=== PATIENT | male | born 1960 | race Caucasian/White ===

== ENCOUNTER 2019-04-18 07:27 | Day surgery (SDC) | payer BC ==
[~2019-04-18] VITALS: Ht 175.3 cm; Wt 98.0 kg
[~2019-04-18 07:27] MED LIST: ASPIR-LOW81 MG PO; PRAVASTATIN SOD40 MG PO
--- NOTE | 2019-04-18 09:14 | NUR ---
04/18/19 0914 Elisabeth Tirado 0908 PATIENT SLEEPING ON ARRIVAL TO PACU. WAKES UP WITH VERBAL STIMULI, ANSWERS QUESTIONS APPROPRIATELY. DENIES PAIN, THEN BACK TO SLEEP. RESP EVEN AND UNLABORED, NC AT 3 LITERS.
--- NOTE | 2019-04-18 18:36 | OR ---
[facility] [address], [place] [address] Signed DATE OF OPERATION: 04/18/2019 SURGEON: Rajeev Zavala MD PREOPERATIVE DIAGNOSES: 1. Clinical gastroesophageal reflux with chronic cough. 2. Colon screening. POSTOPERATIVE DIAGNOSES: 1. Schatzki's ring with small hiatal hernia. 2. Antral gastritis. 3. Polyps x3 (sigmoid and rectosigmoid). PROCEDURES: 1. Total colonoscopy to cecum with cold snare polypectomy x1 and cold morcellation polypectomy x2. 2. Upper endoscopy with biopsy. ANESTHESIA: Intravenous sedation, fentanyl 150 mcg, Versed 8 mg. INDICATION: This 58-year-old white man is a patient of Humphrey Nielson DO, of [place], [place]. He has had long-standing chronic gastroesophageal reflux symptoms and now with chronic cough. He has been well managed with PPI in the past, which was withdrawn from the medicine with recurrence of his symptoms. He is currently taking no medication for reflux. He has undergone colonoscopy in 2012. He has no family history of colon cancer. He is admitted to undergo upper endoscopy to characterize his reflux problem as well as colonoscopy for surveillance. He understands the risks of bleeding, infection, and perforation, and wished to proceed. FINDINGS: Upper endoscopy showed a Schatzki's ring and chronic esophagitis and a small hiatal hernia. There was mild antral gastritis as well. Despite heavy sedation, the patient was somewhat intolerant of upper endoscopy, but it was accomplished safely. On colonoscopy, he had an adequate prep. There were three small polyps, all excised completely. There was no sign of colitis or cancer. DESCRIPTION OF PROCEDURE: Electronically Signed By: RAJEEV ZAVALA MD 04/18/19 1836 PATIENT NAME: BRET MICHEL OPERATIVE REPORT DATE OF : 60 REPORT #: [id number] PHYSICIAN: RAJEEV ZAVALA MD PCP: NO PRIMARY CARE PHYSICIAN REPORT IS CONFIDENTIAL AND NOT TO BE RELEASED WITHOUT AUTHORIZATION [facility] [address], [place] [address] Signed The patient was brought to the endoscopy suite, given topical Hurricaine spray hypopharyngeal anesthesia and placed in lateral decubitus position and given intravenous sedation to the point of slurred speech and nystagmus. A bite block was placed. An Olympus video upper endoscope was passed in the hypopharynx. The patient did not tolerate this. An additional sedation was given. Ultimately, scope was passed into the esophagus and down the esophagus, identifying the Schatzki's ring, but no evidence of Londono's epithelium. The scope was advanced to the stomach, which was insufflated with air. Rugal folds appeared normal. There was some mild antral gastritis. Duodenum was evaluated and normal. Retroflexed view undertaken showing a poor flap valve. The patient became a bit dizzy and agitated and was poorly tolerant of too much further manipulation and a biopsy was then obtained of the Schatzki's ring area in the distal esophagus and promptly removed. Additional sedation was given and digital rectal examination undertaken showing no sign of anorectal abnormality. An Olympus video colonoscope was passed in the rectum and manipulated throughout the colon without distress ultimately to the cecum. The prep was adequate. Irrigation was undertaken in the cecal area. The mucosa of the cecum behind the ileocecal valve was grasped and elevated, showing no sign of abnormalities. Scope was then withdrawn and examination throughout showed no sign of abnormality until approximately the distal sigmoid where a small sessile polyp was noted. This was excised with cold snare technique. Two additional small polyps were noted in the rectosigmoid, both were excised with cold morcellation technique. There were no other findings of concern on retroflexed view. The scope was removed and the patient was taken to recovery room in good condition. CONCLUDING DIAGNOSES: 1. Clinical and endoscopic evidence of significant gastroesophageal reflux as manifested by Schatzki's ring and chronic cough. 2. Small polyps of colon. PLAN: We will initiate PPI medication again. We will see back in 6 weeks and assess his progress, particularly regarding cough and reflux symptoms. He may be an operative candidate at some point. As regard to colon, would recommend repeat colonoscopy in 5 years sooner if clinically indicated. He will return to the ongoing care of Dr. Nielson as well. Rajeev Zavala MD Electronically Signed By: RAJEEV ZAVALA MD 04/18/19 1836 PATIENT NAME: BRET MICHEL OPERATIVE REPORT DATE OF : 60 REPORT #: [id number] PHYSICIAN: RAJEEV ZAVALA MD PCP: NO PRIMARY CARE PHYSICIAN REPORT IS CONFIDENTIAL AND NOT TO BE RELEASED WITHOUT AUTHORIZATION [facility] [address], [place] [address] Signed RYLIE/MIRACLE /[id number] cc: DO Marylou Quiros [place] Copies: ~ Electronically Signed By: RAJEEV ZAVALA MD 04/18/19 1836 PATIENT NAME: BRET MICHEL SHIRLEY OPERATIVE REPORT DATE OF : 60 REPORT #: [id number] PHYSICIAN: RAJEEV ZAVALA MD PCP: NO PRIMARY CARE PHYSICIAN REPORT IS CONFIDENTIAL AND NOT TO BE RELEASED WITHOUT AUTHORIZATION
--- NOTE | 2019-04-21 14:24 | PATH ---
[facility] [address] [place], [place] [address] Signed SPECIMEN(S): A DISTAL ESOPHAGUS SPECIMEN(S): B SIGMOID POLYP SPECIMEN(S): C SIGMOID POLYP SPECIMEN(S): D SIGMOID POLYP SPECIMEN SOURCE: A. DISTAL ESOPHAGUS B. SIGMOID POLYP C. SIGMOID POLYP D. SIGMOID POLYP CLINICAL HISTORY: Gastroesophageal reflux, esophagitis, colonoscopy screening / polyps x 3 colon, hiatal hernia; Schatzki's ring. MICROSCOPIC DESCRIPTION: Histologic sections of all submitted blocks are examined by light microscopy. These findings, together with the gross examination, support the pathologic diagnosis. FINAL PATHOLOGIC DIAGNOSIS: A. Esophagus, distal, biopsy. - Squamous mucosa with changes consistent with reflux esophagitis. - Negative for intestinal metaplasia, dysplasia, or malignancy. B. Colon, sigmoid, polyp, polypectomy: - Fragments of hyperplastic polyp. - Negative for dysplasia or malignancy. C. Colon, sigmoid, polyp, polypectomy: - Hyperplastic polyp. - Negative for dysplasia or malignancy. D. Colon, sigmoid, polyp, polypectomy: - Hyperplastic polyp. - Negative for dysplasia or malignancy. NAL:emb:C2NR GROSS DESCRIPTION: Four specimens are received in four containers, labeled "WE." A. The specimen, labeled "WE, distal esophageal biopsy," is received in formalin and consists of four, 0.2-0.3 cm tilley-white tissue fragments. The specimen is entirely submitted in cassette (A1). B. The specimen, labeled "WE, sigmoid colon polyp," is received in formalin and consists of four, 0.1-0.3 cm tilley tissue fragments admixed with debris. The PATIENT NAME: BRET MICHEL PATHOLOGY DATE OF : 60 REPORT #: [id number] PHYSICIAN: TERA WRIGHT PCP: NO PRIMARY CARE PHYSICIAN REPORT IS CONFIDENTIAL AND NOT TO BE RELEASED WITHOUT AUTHORIZATION [facility] [address] [place] [address] Signed specimen is entirely submitted in cassette (B1). C. The specimen, labeled "WE, sigmoid colon polyp," is received in formalin and consists of two, 0.1 and 0.2 cm tilley tissue fragment admixed with debris. The specimen is entirely submitted in cassette (C1). D. The specimen, labeled "WE, sigmoid colon polyp," is received in formalin and consists of a single 0.3 cm tilley-brown tissue fragment. The specimen is entirely submitted in cassette (D1). AM (under the direct supervision of a pathologist) The Gross Description was prepared using a voice recognition system. The report was reviewed for accuracy; however, sound-alike word errors, addition and/or deletions may occur. If there is any question about this report, please contact Client Services. PERFORMING LABORATORY: The technical component was performed by [email or web address] [address] (Last Greaser: Tiera Clarke MD; CLIA# [id number]). Professional interpretation was performed by [facility], [address] [place] [id number] (Last Greaser: Josue Guerrero MD; CLIA# [id number]). Diagnostician: Esther Alvarado MD Pathologist Electronically Signed 04/21/2019 Copies: ~ PATIENT NAME: MARILUBRETNIK WATSON PATHOLOGY DATE OF : 60 REPORT #: [id number] PHYSICIAN: TERA PATHOLOGY PCP: NO PRIMARY CARE PHYSICIAN REPORT IS CONFIDENTIAL AND NOT TO BE RELEASED WITHOUT AUTHORIZATION
== END 2019-04-18 09:50 | disposition home or self-care (01) ==
LOC: OPS 07:27 → DS 07:27 → OPS 08:30 → DS 08:30 → OPS 09:50
PROVIDERS: Surgery
PROC: 0DB38ZX Excision of Lower Esophagus, Via Natural or Artificial Opening Endoscopic, Diagnostic (ICD-10-PCS; principal; 2019-04-18 08:30)
PROC: 0DBN8ZZ Excision of Sigmoid Colon, Via Natural or Artificial Opening Endoscopic (ICD-10-PCS; 2019-04-18 08:30)
DX: Z12.11 Encounter for screening for malignant neoplasm of colon (principal); K63.5 Polyp of colon; K29.70 Gastritis, unspecified, without bleeding; K21.0 Gastro-esophageal reflux disease with esophagitis; R05 Cough; K22.2 Esophageal obstruction; G47.30 Sleep apnea, unspecified; K44.9 Diaphragmatic hernia without obstruction or gangrene; Z79.82 Long term (current) use of aspirin; Z79.899 Other long term (current) drug therapy; Z90.49 Acquired absence of other specified parts of digestive tract; Z98.890 Other specified postprocedural states
CPT/HCPCS: 99153; G0500; J2250; J3010; J7121